=== PATIENT | male | born 1995 | race Caucasian/White ===

== ENCOUNTER 2017-02-17 19:12 | Emergency (ER) | payer SELFPAY ==
[2017-02-17 19:13] VITALS: BMI 26.6
[2017-02-17 19:25] VITALS: BP 126/72; PULSE 78; RESP 18; TEMP 98.1; O2SAT 100
[2017-02-17] MEDS ORDERED: Lidocaine 1% Inj (20ml) IJ ONE (20:22)
--- NOTE | 2017-02-17 20:53 | ED PDOC ---
Upper Extremity Pain/Injury Time Seen by Provider: 02/17/17 20:12 Chief Complaint (Nursing): Finger,Hand,&Wrist History Per: Patient Additional Complaint(s): Pt. states for the past week he's had pain to the R middle finger. Denies trauma , fever, discharge. Past Medical History Reviewed: Historical Data, Nursing Documentation, Vital Signs Vital Signs: Last Vital Signs Temp 98.1 F 02/17/17 19:23 Pulse 78 02/17/17 19:23 Resp 18 02/17/17 19:23 BP 126/72 02/17/17 19:23 Pulse Ox 100 02/17/17 19:23 - Medical History PMH: Denies: HIV, Chronic Kidney Disease - Family History Family History: States: No Known Family Hx - Home Medications Home Medications: Ambulatory Orders Medication Instructions Recorded Ciprofloxacin HCl [Cipro] 500 mg PO BID #0 tab 05/14/15 Metronidazole [Flagyl] 500 mg PO TID #0 tab 05/14/15 Sulfamethoxazole/Trimethoprim 2 tab PO BID #28 tab 02/17/17 [Bactrim DS 800 mg-160 mg] - Allergies Allergies/Adverse Reactions: Allergies Allergy/AdvReac Type Severity Reaction Status Date / Time No Known Allergies Allergy Verified 05/13/15 10:17 Review of Systems ROS Statement: Except As Marked, All Systems Reviewed And Found Negative Physical Exam - Physical Exam Appears: Positive for: Well, Non-toxic, No Acute Distress Skin: Positive for: Normal Color, Warm. Negative for: Rash Extremity: Positive for: Normal ROM, Other (R 3rd digit with fluctuance, swelling, and tenderness on lateral nail margin without felon or nail involvement) - ECG O2 Sat by Pulse Oximetry: 100 Procedures - Time-Out Type of Procedure: I&D of paronychia Site of Procedure: R 3rd digit Correct Patient: Yes Correct Procedure: Yes Correct Site Marked: Yes PA/Tech: Rachael - Incision and Drainage Site: R 3rd digit Blade Size: 11 I & D Procedure: betadine prep, sterile drapes applied Disposition - Clinical Impression Clinical Impression: Paronychia - Patient ED Disposition Is Patient to be Admitted: No - Disposition Referrals: [facility] [Outside] Disposition: Routine/Home Disposition Time: 20:53 Condition: IMPROVED Prescriptions: Sulfamethoxazole/Trimethoprim [Bactrim DS 800 mg-160 mg] 2 tab PO BID #28 tab Instructions: Paronychia (ED) Print Language: [place]
== END 2017-02-17 21:10 | disposition home or self-care (01) ==
LOC: H.ER 19:12
DX: L03.011 Cellulitis of right finger (principal)